=== PATIENT | female | born 1935 | race Caucasian/White ===

== ENCOUNTER 2016-10-22 05:10 | Emergency (ER) | payer OTHER, BC ==
[2016-10-22 05:29] VITALS: BP 199/96; PULSE 76; TEMP 97.8; BMI 17.6
[2016-10-22] MEDS ORDERED: diazePAM 2 MG TABLET PO ONE (05:35)
[2016-10-22] MEDS ORDERED: KETOROLAC TROMETHAMINE 30 MG/1 ML VIAL IM ONE (05:35)
--- NOTE | 2016-10-22 05:41 | PDOC ---
History of Present Illness - General Chief Complaint: Pain, Acute Stated Complaint: BACK PAIN Time Seen by Provider: 10/22/16 05:34 History Source: Patient Exam Limitations: No Limitations - History of Present Illness Initial Comments: 10/22/16 05:38 This is a 81-year-old female who has history of low back pain in the past who is splinted it is reasonable patient said she moved wrong and the back pain started up again. Last time patient said this happened that her doctor gave her some Valium and it resolved. Patient otherwise denies any radiation down her leg , any numbness or weakness or any other complaints. PAST MEDICAL HISTORY: As per history of present illness PAST SURGICAL HISTORY: no significant history FAMILY HISTORY: no pertinant history SOCIAL HISTORY: Pt lives with family and is employed. MEDICATIONS: reviewed ALLERGIES: As per nursing notes Review of Systems General: No fevers or chills, no weakness, no weight loss HEENT: No change in vision. No sore throat,. No ear pain CardioVascular: No chest pain or shortness of breath Respiratory:No cough, or wheezing. Gastrointestinal: no nausea, vomitting, diarrhea or constipation, No rectal bleeding Genitourinary: No dysuria, hematuria, or frequency Musculoskeletal: Low back pain Neurologic: No headache, vertigo, dizziness or loss of consciousness Psychiatric: nor depression Skin: No rashes or easy bruising Endocrine: no increased thirst or abnormal weight change Allergic: no skin or latex allergy All other systems reviewed and normal GENERAL: The patient is awake, alert, and fully oriented, in no acute distress. HEAD: Normal with no signs of trauma. EYES: Pupils equal, round and reactive to light, extraocular movements intact, sclera anicteric, conjunctiva clear. EXTREMITIES: Normal range of motion, no edema. BACK: There is some tenderness and paraspinal spasm on palpation of the upper lumbar region. Neurovascular is intact. NEUROLOGICAL: Normal speech, normal gait. PSYCH: Normal mood, normal affect. SKIN: Warm, Dry, normal turgor, no rashes or lesions noted. Assessment and plan: This is a 81-year-old female who comes in complaining of back pain. Patient shot of Toradol and a prescription for Valium. Patient discharged home will follow-up with her primary care doctor as needed Past History - Past Medical History Allergies/Adverse Reactions: Allergies Allergy/AdvReac Type Severity Reaction Status Date / Time codeine [Codeine] Allergy Severe Verified 09/14/12 06:35 ibuprofen [From Motrin] AdvReac Intermediate Unverified 09/14/12 06:35 Home Medications: Ambulatory Orders Levothyroxine [Synthroid -] 50 mcg PO DAILY 08/08/12 Vit B12/Pyridoxine/Thiamine [Nervidox-6 Tablet] 1 each PO DAILY 08/08/12 Vit D3-Vit K/Berberine/Hops [Ostera Tablet] 1 each PO BID 08/08/12 Polyethylene Glycol 3350 [Miralax 255 gm Btl -] 17 gm PO DAILY 09/14/12 Ascorbate Calcium [Vitamin C] 500 mg PO DAILY 11/24/15 Hydrochlorothiazide [Hctz -] 12.5 mg PO Q48H 11/24/15 Lactobacillus Acidophilus [Probiotic] 1 each PO DAILY 11/24/15 Ramipril [Altace] 2.5 mg PO HS 11/24/15 Diazepam [Valium] 2 mg PO DAILY #7 tablet MDD 1 10/22/16 Anemia: No Asthma: No Cancer: Yes (Endometrial) Cardiac Disorders: No CVA: No COPD: No CHF: No Dementia: No Diabetes: No GI Disorders: Yes (IBS) Disorders: No HTN: Yes Hypercholesterolemia: No Liver Disease: No Seizures: No Thyroid Disease: Yes (hypo) - Surgical History Abdominal Surgery: No Appendectomy: No Cardiac Surgery: No Cholecystectomy: No Lung Surgery: No Neurologic Surgery: No Orthopedic Surgery: Yes (LT KNEE., ORIF LEFT WRIST) - Psycho/Social/Smoking Cessation Hx Anxiety: No Suicidal Ideation: No Smoking History: Never smoked Have you smoked in the past 12 months: No Hx Alcohol Use: Yes (RARELY) Drug/Substance Use Hx: No Substance Use Type: Alcohol Hx Substance Use Treatment: No *Physical Exam - Vital Signs Last Vital Signs Temp Pulse Resp BP Pulse Ox 97.8 F 76 16 199/96 96 10/22/16 05:22 10/22/16 05:22 10/22/16 05:22 10/22/16 05:22 10/22/16 05:22 *DC/Admit/Observation/Transfer Diagnosis at time of Disposition: Back pain Qualifiers: Back pain location: low back pain Chronicity: acute Back pain laterality: unspecified Sciatica presence: without sciatica Qualified Code(s): M54.5 - Low back pain - Discharge Dispostion Condition at time of disposition: Stable Admit: No - Patient Instructions Additional Instructions: For the pain you can take Tylenol and the Valium once a today. take the Valium in the nighttime hours as it will help you sleep and make you drowsy. Return to the emergency department immediately with ANY new, persistent or worsening symptoms. Continue any medications as previously prescribed by your physician. You should follow up with your primary doctor as soon as possible regarding today's emergency department visit. . Please make sure your doctor reviews the results of your emergency evaluation. Thank you for coming to the Emergency Department today for your care. It was a pleasure to see you today. Please note that your evaluation is INCOMPLETE until you follow-up with your doctor.
== END 2016-10-22 05:55 | disposition home or self-care (01) ==
LOC: FER 05:10
PROC: 3E0233Z Introduction of Anti-inflammatory into Muscle, Percutaneous Approach (ICD-10-PCS; principal; 2016-10-22)
DX: M54.5 Low back pain (principal); Z85.42 Personal history of malignant neoplasm of other parts of uterus; I10 Essential (primary) hypertension; E03.9 Hypothyroidism, unspecified; K58.9 Irritable bowel syndrome, unspecified
CPT/HCPCS: 96372; 99282-25